=== PATIENT | male | born 1985 ===

== ENCOUNTER 2019-09-24 04:43 | Emergency (ER) | payer MEDICAID ==
[~2019-09-24] VITALS: Ht 170.2 cm; Wt 86.2 kg
[2019-09-24 04:51] VITALS: Ht 170.2 cm; Wt 86.2 kg
[2019-09-24] MEDS ORDERED: HYDROCODON-ACE1 EA10 PO (06:53)
[2019-09-24 07:44] VITALS: BP 104/54
== END 2019-09-24 07:45 | disposition home or self-care (01) ==
LOC: D.ER 04:43
DX: S01.112A Laceration without foreign body of left eyelid and periocular area, initial encounter (principal); W22.8XXA Striking against or struck by other objects, initial encounter; Y93.9 Activity, unspecified; Y92.9 Unspecified place or not applicable